=== PATIENT | male | born 1965 | race African-American/Black ===

== ENCOUNTER 2021-03-16 19:30 | Outpatient (CLI) | payer OTHER | END 2021-03-16 19:31 | disposition home or self-care (01) | LOC: SLEEPLAB 19:30 | PROVIDERS: ATTEND Family Medicine | DX: G47.33 Obstructive sleep apnea (adult) (pediatric) (principal); R53.83 Other fatigue; R09.89 Other specified symptoms and signs involving the circulatory and respiratory systems; R06.83 Snoring; I10 Essential (primary) hypertension; G47.10 Hypersomnia, unspecified; G47.00 Insomnia, unspecified; E66.9 Obesity, unspecified; Z68.42 Body mass index [BMI] 45.0-49.9, adult | CPT/HCPCS: 95811 ==

== ENCOUNTER 2023-02-20 21:35 | Inpatient (IN) | payer OTHER ==
[2023-02-21 00:01] VITALS: BMI 47.2
[2023-02-21 01:11] LABS: SARS-CoV-2 NAA Rapid Test Not Detected (NotDetected)
[2023-02-21 02:35] LABS: Troponin I Less than 0.010 ng/mL (< 0.028)
[2023-02-21] MEDS ORDERED: Ondansetron ODT 4 MG TAB PO PRN (05:16)
[2023-02-21] MEDS ORDERED: Ondansetron PF 4 MG/2 ML Vial IVP PRN (05:16)
[2023-02-21] MEDS ORDERED: Nitroglycerin 0.4 MG TAB (25 Tab Bottle) SL PRN (05:16)
[2023-02-21] MEDS ORDERED: Acetaminophen 325 MG TAB PO PRN (05:16)
[2023-02-21] MEDS ORDERED: Acetaminophen 650 MG Suppository PR PRN (05:16)
[2023-02-21 05:19] LABS: Troponin I Less than 0.010 ng/mL (< 0.028)
[2023-02-21] MEDS ORDERED: Aspirin Chewable 81 MG TAB PO SCH (06:00)
[2023-02-21] MEDS ORDERED: Regadenoson 0.4 MG/5 ML SYRINGE ONE (08:54)
[2023-02-21] MEDS: Aspirin Chewable 81 MG TAB PO SCH (11:10)
[2023-02-21] MEDS ORDERED: Valsartan 80 MG TAB PO SCH (12:00)
[2023-02-21] MEDS ORDERED: Furosemide 40 MG TAB PO SCH (12:30)
[2023-02-21] MEDS: Atorvastatin Calcium 20 MG TAB PO SCH (20:03)
[2023-02-21] MEDS: Valsartan 80 MG TAB PO SCH (20:03)
[2023-02-22 04:46] LABS: Anion Gap 13 mmol/L (10-20); BUN (Urea Nitrogen) 11 mg/dL (8.4-25.7); Calc. Creatinine Clearance 176 mL/min (70-130); Calcium 8.9 mg/dL (7.8-10.44); Carbon Dioxide 26 mmol/L (22-29); Chloride 104 mmol/L (98-107); Estimated GFR 89; Glucose 105 mg/dL (70-105); Potassium 4.2 mmol/L (3.5-5.1); Sodium 139 mmol/L (136-145)
[2023-02-22 05:03] LABS: Hemoglobin 12.4 g/dL (14.0-18.0); Mean Corpuscular HGB CONC 28.4 g/dL (32.0-36.0); Mean Corpuscular Volume 84.5 fl (78.0-98.0); Mean Platelet Volume 7.5 fL (7.4-10.4); Platelet Count 301 10x3/uL (130-400); RBC Distribution Width 15.5 % (11.5-14.5); Red Blood Cell (RBC) Count 5.16 mill/uL (4.70-6.10); White Blood Cell (WBC) Count 5.8 10x3/uL (4.8-10.8)
[2023-02-22 05:48] LABS: Eosinophils 5 % (0-10); Hypochromia SLIGHT = 6-15 cells (100X) (0-5/hpf); Lymphocytes 38 % (21-51); MDiff Complete? YES; Monocytes 8 % (0-10); Neutrophil 47 % (42-75); Platelet Morphology Comment Appears Adequate
[2023-02-22] MEDS: Valsartan 80 MG TAB PO SCH ×2 (13:27→20:30)
[2023-02-22] MEDS: Aspirin Chewable 81 MG TAB PO SCH (13:27)
[2023-02-22] MEDS: Furosemide 40 MG TAB PO SCH (13:27)
[2023-02-22] MEDS: Atorvastatin Calcium 20 MG TAB PO SCH (20:30)
[2023-02-22] MEDS ORDERED: Metoprolol Tartrate 25 MG TAB PO SCH (21:00)
[2023-02-23] MEDS: Aspirin Chewable 81 MG TAB PO SCH (08:46)
[2023-02-23] MEDS: Valsartan 80 MG TAB PO SCH (08:46)
[2023-02-23] MEDS: Furosemide 40 MG TAB PO SCH (08:46)
[2023-02-23 09:05] LABS: Anion Gap 12 mmol/L (10-20); BUN (Urea Nitrogen) 12 mg/dL (8.4-25.7); Calc. Creatinine Clearance 166 mL/min (70-130); Calcium 8.8 mg/dL (7.8-10.44); Carbon Dioxide 27 mmol/L (22-29); Chloride 102 mmol/L (98-107); Estimated GFR 86; Glucose 106 mg/dL (70-105); Potassium 4.1 mmol/L (3.5-5.1); Sodium 137 mmol/L (136-145)
[2023-02-23] MEDS: Atorvastatin Calcium 20 MG TAB PO SCH (20:03)
[2023-02-23] MEDS: Sacubitril 49 MG/Valsartan 51 MG TABLET PO SCH (20:03)
[2023-02-24 05:04] LABS: Anion Gap 12 mmol/L (10-20); BUN (Urea Nitrogen) 15 mg/dL (8.4-25.7); Calc. Creatinine Clearance 188 mL/min (70-130); Calcium 8.8 mg/dL (7.8-10.44); Carbon Dioxide 26 mmol/L (22-29); Chloride 103 mmol/L (98-107); Estimated GFR 100; Glucose 116 mg/dL (70-105); Sodium 137 mmol/L (136-145)
[2023-02-24] MEDS: Aspirin Chewable 81 MG TAB PO SCH (08:46)
[2023-02-24] MEDS: Empagliflozin 10 MG TAB PO SCH (08:46)
[2023-02-24] MEDS: Sacubitril 49 MG/Valsartan 51 MG TABLET PO SCH ×2 (08:46→20:12)
[2023-02-24] MEDS: Furosemide 40 MG TAB PO SCH (08:46)
[2023-02-24] MEDS ORDERED: Communication Order-Pharmacy FS SCH (16:15)
[2023-02-24] MEDS: Atorvastatin Calcium 20 MG TAB PO SCH (20:12)
[2023-02-25] MEDS ORDERED: Sodium Chloride 0.9% 500 ML IV SCH ×2 (00:01→10:45)
[2023-02-25 04:47] LABS: #Eosinphils 0.1 thou/uL (0.0-0.7); #Lymphocytes 1.6 thou/uL (1.20-3.40); #Monocytes 0.6 thou/uL (0.11-0.59); %Basophils 0.3 % (0.0-1.0); %Eosinophils 1.6 % (0.0-10.0); %Lymphocytes 25.3 % (21.0-51.0); %Neutrophils 63.9 % (42.0-75.0); Hemoglobin 13.5 g/dL (14.0-18.0); Mean Corpuscular HGB CONC 30.3 g/dL (32.0-36.0); Mean Corpuscular Hemoglobin 25.6 pg (27.0-31.0); Mean Corpuscular Volume 84.5 fl (78.0-98.0); Mean Platelet Volume 7.3 fL (7.4-10.4); Platelet Count 317 10x3/uL (130-400); RBC Distribution Width 15.1 % (11.5-14.5); Red Blood Cell (RBC) Count 5.29 mill/uL (4.70-6.10); White Blood Cell (WBC) Count 6.3 10x3/uL (4.8-10.8)
[2023-02-25 05:00] LABS: Anion Gap 15 mmol/L (10-20); BUN (Urea Nitrogen) 17 mg/dL (8.4-25.7); Calc. Creatinine Clearance 156 mL/min (70-130); Calcium 8.8 mg/dL (7.8-10.44); Carbon Dioxide 23 mmol/L (22-29); Chloride 104 mmol/L (98-107); Estimated GFR 79; Glucose 111 mg/dL (70-105); Potassium 4.2 mmol/L (3.5-5.1); Sodium 138 mmol/L (136-145)
[2023-02-25] MEDS: Aspirin Chewable 81 MG TAB PO SCH (05:24)
[2023-02-25] MEDS: Sacubitril 49 MG/Valsartan 51 MG TABLET PO SCH (05:24)
[2023-02-25] MEDS: Empagliflozin 10 MG TAB PO SCH (05:24)
[2023-02-25] MEDS ORDERED: Heparin 10,000 UNITS/ 10 ML VIAL ONE (07:33)
[2023-02-25] MEDS ORDERED: Nitroglycerin 50 MG/250 ML BOT 250 ML ONE (07:33)
[2023-02-25] MEDS ORDERED: Lidocaine 1% (PF) 30 ML VIAL ONE (07:33)
[2023-02-25] MEDS ORDERED: Verapamil 5 MG/2 ML VIAL ONE (07:33)
[2023-02-25] MEDS ORDERED: Iopamidol 370 76% 100 ML VIAL ONE (09:58)
[2023-02-25] MEDS ORDERED: fentaNYL 50 mcg/mL 1 mL Vial ONE (10:03)
[2023-02-25] MEDS ORDERED: Midazolam HCl 2 mg/2 ml Vial ONE (10:03)
[2023-02-25] MEDS ORDERED: Sodium Chloride 0.9% 200 ML IV PRN (10:30)
[2023-02-25] MEDS ORDERED: Acetaminophen/Codeine 30-300mg Tablet PO PRN (10:30)
[2023-02-25] MEDS ORDERED: Furosemide 40 MG TAB PO PRN (10:49)
[2023-02-25] MEDS: Furosemide 40 MG TAB PO SCH (11:03)
[2023-02-25 12:47] VITALS: BP 136/73; TEMP 97.8
== END 2023-02-25 13:45 | disposition home or self-care (01) | DRG 281 ==
LOC: 2SW 21:35 → OBSVTOIN 02-21 05:21
PROVIDERS: ADMIT Student in an Organized Health Care Education/Training Program; ATTEND Internal Medicine
PROC: 4A023N7 Measurement of Cardiac Sampling and Pressure, Left Heart, Percutaneous Approach (ICD-10-PCS; principal; 2023-02-21)
PROC: B2111ZZ Fluoroscopy of Multiple Coronary Arteries using Low Osmolar Contrast (ICD-10-PCS; 2023-02-21)
PROC: B2151ZZ Fluoroscopy of Left Heart using Low Osmolar Contrast (ICD-10-PCS; 2023-02-21)
DX: I21.A1 Myocardial infarction type 2 (principal); I42.0 Dilated cardiomyopathy; Z68.42 Body mass index [BMI] 45.0-49.9, adult; I50.32 Chronic diastolic (congestive) heart failure; I42.8 Other cardiomyopathies; I11.0 Hypertensive heart disease with heart failure; G47.33 Obstructive sleep apnea (adult) (pediatric); E78.5 Hyperlipidemia, unspecified; Z20.822 Contact with and (suspected) exposure to COVID-19; E66.01 Morbid (severe) obesity due to excess calories; E11.9 Type 2 diabetes mellitus without complications; Z88.2 Allergy status to sulfonamides; Z79.899 Other long term (current) drug therapy
CPT/HCPCS: 36415; 71045; 78452; 80048; 80053; 83880; 84484; 85025; 93005; 93017; 93306; 93458; 94760; 97139; 99152; A9500; C1769; C1894; G0378; J1644; J2001; J2250; J2785; J3010; J7030; U0002